=== PATIENT | female | born 1955 | race Caucasian/White ===

== ENCOUNTER 2016-09-13 12:36 | Emergency (ER) | payer OTHER ==
--- NOTE | ~2016-09-13 | CR21 ---
[facility] A Service of [facility] & [facility] RADIOLOGY TEXT RESULTS PATIENT: NARESH NELSON LOCATION: CFTX : 51 UNIT #: [id number] AGE: [address]: Marilu May APRN SEX: F ORDER DR: [id number] [facility] [address] [place], [place] [address] [id number] E MR#: [id number] Acc #: [id number] NAME: NARESH NELSON : 1955 SEX: F STUDY DATE/TIME: 09/13/2016 13:23 UNIT: [facility] ROOM: STUDY DESCRIPTION: CR Ankle Min 3 Views Rt Attending Physician: Marilu May A.P.R.N. Ordering Physician: [facility] Primary Care Physician: Suhail Holcomb M.D. MEDICAL IMAGING REPORT This report is preliminary unless electronic signature is present EXAM Right ankle HISTORY Injury 2 weeks ago with twisting. Persistent ankle pain on the right. TECHNIQUE Three views of the ankle were obtained. FINDINGS There is a small bone spur at the lateral malleolus. There is no evidence of fracture or bone destruction. The ankle mortise is symmetric and the dome of the talus is intact. IMPRESSION No fracture seen. Dictated by... Romeo Rivera M.D. THIS IS AN ELECTRONICALLY VERIFIED REPORT Romeo Rivera M.D. at 09/13/2016 5:10 PM MAITE/joel TD: 09/13/2016 15:19 JOB #: [id number] MEDICAL IMAGING REPORT Page 1 of 1 COPY
--- NOTE | ~2016-09-13 | CR127 ---
[facility] A Service of [facility] & [facility] RADIOLOGY TEXT RESULTS PATIENT: NARESH NELSON LOCATION: [place] : 51 UNIT #: [id number] AGE: [address]: Marilu May APRN SEX: F ORDER DR: [id number] [facility] [address] [place], [place] [address] [id number] E MR#: [id number] Acc #: [id number] NAME: NARESH NELSON : 1955 SEX: F STUDY DATE/TIME: 09/13/2016 13:22 UNIT: [facility] ROOM: STUDY DESCRIPTION: CR Foot Complete Min 3 View Rt Attending Physician: Marilu May A.P.R.N. Ordering Physician: Ernesto Pendleton M.D. Primary Care Physician: Suhail Holcomb M.D. MEDICAL IMAGING REPORT This report is preliminary unless electronic signature is present EXAM Right foot HISTORY Foot pain approximately 2 weeks ago after falling. Pain is lateral. TECHNIQUE 3 views of the foot were obtained. FINDINGS Hypertrophic degenerative bony changes are seen at the fifth tarsometatarsal joint. There is no evidence of fracture, bone destruction, or erosion. Other joint spaces of the foot are preserved. IMPRESSION No acute fracture. Spurring is noted at the fifth tarsometatarsal joint. Dictated by... Romeo Rivera M.D. THIS IS AN ELECTRONICALLY VERIFIED REPORT Romeo Rivera M.D. at 09/13/2016 5:10 PM MAITE/maicol TD: 09/13/2016 15:20 JOB #: [id number] MEDICAL IMAGING REPORT Page 1 of 1 COPY
[~2016-09-13 12:36] MED LIST: CIPRO750 MG PO; FLEXERIL10 M1 PO; IBUPROFEN800 MG PO; KEPPRA750 MG PO; KLONOPIN PO; LITHIUM PO; LOMOTIL TABLET1 TAB PO; LOPID600 MG PO; NABUMETONE PO; OMEPRAZOLE40 MG PO; PREMARIN PO; ROBAXIN PO; SEROQUEL PO; SONATA PO; ZOFRAN PO; [UNRECOGNIZED DRUG - OTHER]
== END 2016-09-13 14:20 | disposition home or self-care (01) ==
LOC: CED 12:36 → CFTX 12:36
DX: S93.401A Sprain of unspecified ligament of right ankle, initial encounter (principal); J44.9 Chronic obstructive pulmonary disease, unspecified; G40.909 Epilepsy, unspecified, not intractable, without status epilepticus; I10 Essential (primary) hypertension; Z88.2 Allergy status to sulfonamides; F17.210 Nicotine dependence, cigarettes, uncomplicated; X58.XXXA Exposure to other specified factors, initial encounter; Y92.009 Unspecified place in unspecified non-institutional (private) residence as the place of occurrence of the external cause
CPT/HCPCS: 73610; 73630; 99283